=== PATIENT | female | born 1945 | race Hispanic/Latino ===

== ENCOUNTER → 2018-09-25 | Outpatient (CLI) | payer MEDICARE, BC ==
--- NOTE | 2018-09-25 15:53 | Diagnostic Imaging Report ---
Ultrasound-guided right thyroid nodule fine needle aspiration Pre-Procedure Diagnosis: Right lower pole thyroid nodule Post-procedure Diagnosis: Right lower pole thyroid nodule status post FNA [employer]: Kevon Jenkins MD Sedation: 1% lidocaine local anesthesia. Estimate blood loss: None. Complications: None Implants/Grafts: None Specimen: 25-gauge fine needle aspiration x 4 Procedure/Findings: Outside hospital thyroid ultrasound dated 06/30/2018 was reviewed. Informed consent was obtained and the patient positioned supine in the ultrasound suite. A timeout was performed, followed by preliminary ultrasound of the thyroid which demonstrated multiple bilateral thyroid nodules. The largest solid nodule was in the right lower pole thyroid and targeted for biopsy. The neck was prepped and draped in standard sterile fashion. Local anesthesia with 1% subcutaneous lidocaine was administered. Using real-time ultrasound guidance, a 25-gauge needle was advanced into the right lower pole thyroid nodule and a total of four fine needle aspirates were obtained. Pathology was present for the procedure and confirmed adequacy of the sample. Post procedural ultrasound demonstrated no immediate complication. A sterile dressing was applied. Impression: Ultrasound guided fine needle aspiration of right lower pole thyroid nodule as above. Signed by: Dr. Kevon Jenkins MD on 09/25/2018 3:50 PM
== END ==
LOC: US 12:38
PROVIDERS: ATTEND Otolaryngology
DX: E04.2 Nontoxic multinodular goiter (principal)
CPT/HCPCS: 10005; 88172; 88173

== ENCOUNTER 2019-03-11 13:43 | Outpatient (RCR) | payer MEDICARE, BC | END 2019-03-15 | LOC: PT 13:43 | PROVIDERS: ATTEND Internal Medicine | DX: M25.552 Pain in left hip (principal); M54.5 Low back pain; M62.81 Muscle weakness (generalized); R26.2 Difficulty in walking, not elsewhere classified ==

== ENCOUNTER 2019-03-25 16:00 | Outpatient (RCR) | payer MEDICARE, BC | END 2019-04-15 | LOC: PT 16:00 | PROVIDERS: ATTEND Internal Medicine | DX: M25.552 Pain in left hip (principal); M54.5 Low back pain; M62.81 Muscle weakness (generalized) | CPT/HCPCS: 97139 ==

== ENCOUNTER → 2019-06-07 | Outpatient (CLI) | payer MEDICARE, BC ==
--- NOTE | 2019-06-08 07:59 | Diagnostic Imaging Report ---
Examination: MRI SPINE LUMBAR WO CONTRAST History: Low back pain with radiation to the bilateral lower extremity. Bilateral lumbar radiculopathy. Comparison studies: None Technique: Sagittal, coronal and axial T2 , sagittal T1 and STIR; axial spin density oblique. Findings: Number of lumbar vertebral bodies: Five. Alignment: Normal lordosis. No scoliosis. Soft tissues: No T2 hyperintense inflammatory changes. Posterior paraspinal soft tissues and muscles: No abnormality. Lower thoracic cord: Normal in signal and morphology. The tip of the conus is at T12. Cauda equina: No masses. No arachnoiditis. Vertebrae: No acute fractures, infection or neoplasm. Chronic height loss of the L1 vertebral body (50%) without canal compromise. Degenerative changes: L1-L2: Mild diffuse bulge. No foraminal or canal stenosis. L2-L3: Diffuse disc bulge and mild bilateral facet arthropathy. No foraminal or canal stenosis. L3-L4: Diffuse disc bulge and bilateral facet arthropathy results in mild canal stenosis and mild bilateral neural foraminal narrowing. L4-L5: Grade 1 anterolisthesis without pars defect. Uncovering of a diffuse disc bulge and severe bilateral facet arthropathy result in mild bilateral neural foraminal narrowing and moderate canal stenosis. L5-S1: Mild diffuse disc bulge and moderate bilateral facet arthropathy. No canal or foraminal stenosis IMPRESSION: Degenerative changes from L1-L2 through L5-S1 with moderate canal stenosis at L4-L5 and mild canal stenosis at L3-L4. No significant (not moderate or severe) foraminal stenosis. Chronic L1 compression fracture. Signed by: Dr. Bisi Nobles M.D. on 06/08/2019 7:56 AM
== END ==
LOC: MRI 14:23
PROVIDERS: ATTEND Specialist
DX: M54.16 Radiculopathy, lumbar region (principal); M43.16 Spondylolisthesis, lumbar region
CPT/HCPCS: 72148

== ENCOUNTER → 2020-03-11 | Outpatient (CLI) | payer MEDICARE, BC ==
--- NOTE | 2020-03-11 13:23 | Diagnostic Imaging Report ---
EXAMINATION: CHEST 2 VIEWS INDICATION: Cough. COMPARISON: None FINDINGS: TUBES and LINES: None. LUNGS: Lungs are well inflated. Mild bronchial thickening. Mild patchy bibasilar opacities. No evidence of lobar pneumonia. PLEURA: No pleural effusion or pneumothorax. HEART AND MEDIASTINUM: The cardiomediastinal silhouette is unremarkable. BONES AND SOFT TISSUES: No acute osseous lesion. Soft tissues are unremarkable. UPPER ABDOMEN: No free air under the diaphragm. IMPRESSION: Mild patchy bibasilar opacities, likely atelectasis, although infection is possible in the appropriate clinical setting. No evidence of lobar pneumonia. Mild bronchial wall thickening, suggestive of bronchitis in the setting of cough. Signed by: Dr. Kevon Jenkins MD on 03/11/2020 1:20 PM
== END ==
LOC: RAD 12:03
PROVIDERS: ATTEND Internal Medicine
DX: R05 Cough (principal)
CPT/HCPCS: 71046

== ENCOUNTER 2020-07-06 15:13 | Emergency (ER) | payer MEDICARE, BC ==
[~2020-07-06] VITALS: Ht 167.6 cm; Wt 84.1 kg
[2020-07-06] MEDS ORDERED: AMLODIPINE BESY10 MG PO (15:47)
[2020-07-06] MEDS ORDERED: LOSARTAN POTAS100 MG PO (15:47)
[2020-07-06] MEDS ORDERED: CRESTOR10 MG PO (15:47)
[2020-07-06] MEDS ORDERED: VENLAFAXINE HCL75 MG PO (15:47)
[2020-07-06] MEDS ORDERED: METFORMIN HCL1000 MG (15:47)
[2020-07-06] MEDS ORDERED: PLAVIX75 MG PO (15:47)
[2020-07-06] MEDS ORDERED: MOTRIN200 MG PO (16:15)
[2020-07-06] MEDS ORDERED: KETOROLAC TROMETHAMINE 60 MG/2 ML VIAL IM ONE (16:15)
== END 2020-07-06 16:23 | disposition home or self-care (01) ==
LOC: FSED 15:35
DX: R07.89 Other chest pain (principal); M25.532 Pain in left wrist; M79.632 Pain in left forearm; W18.30XA Fall on same level, unspecified, initial encounter; Y93.01 Activity, walking, marching and hiking; I10 Essential (primary) hypertension; E11.9 Type 2 diabetes mellitus without complications; F32.9 Major depressive disorder, single episode, unspecified; E78.5 Hyperlipidemia, unspecified; Z95.5 Presence of coronary angioplasty implant and graft
CPT/HCPCS: 71046; 73090; 96372; 99283; J1885

== ENCOUNTER 2021-07-15 14:29 | Emergency (ER) | payer MEDICARE, BC ==
[~2021-07-15] VITALS: Ht 157.5 cm; Wt 81.6 kg
[~2021-07-15 14:29] MED LIST: AMLODIPINE BESY10 MG PO; CRESTOR10 MG PO; LOSARTAN POTAS100 MG PO; METFORMIN HCL1000 MG; MOTRIN200 MG PO; PLAVIX75 MG PO; VENLAFAXINE HCL75 MG PO
== END 2021-07-15 16:15 | disposition home or self-care (01) ==
LOC: FSED 14:50
DX: S93.402A Sprain of unspecified ligament of left ankle, initial encounter (principal); W06.XXXA Fall from bed, initial encounter; Y93.84 Activity, sleeping; Y92.003 Bedroom of unspecified non-institutional (private) residence as the place of occurrence of the external cause; I10 Essential (primary) hypertension; E11.9 Type 2 diabetes mellitus without complications; E78.5 Hyperlipidemia, unspecified; I25.10 Atherosclerotic heart disease of native coronary artery without angina pectoris; Z95.5 Presence of coronary angioplasty implant and graft; Z86.73 Personal history of transient ischemic attack (TIA), and cerebral infarction without residual deficits
CPT/HCPCS: 99283

== ENCOUNTER 2024-04-26 13:24 | Emergency (ER) | payer BC, MEDICARE ==
[~2024-04-26] VITALS: Ht 165.1 cm; Wt 72.8 kg
[2024-04-26] MEDS ORDERED: LIDOCAINE 1% W/EPINEPHRINE 20 ML VIAL INJ ONE (13:45)
[2024-04-26] MEDS: TETANUS/DIPHTHERIA TOX ADULT 0.5 ML SYR IM ONE (13:58)
[2024-04-26 14:07] VITALS: PULSE 61; RESP 16; TEMP 97.3; O2SAT 96
[2024-04-26] MEDS ORDERED: PRESERVISION A1 EAC4 (15:02)
[2024-04-26] MEDS ORDERED: CITALOPRAM HBR10 MG (15:02)
[2024-04-26] MEDS ORDERED: LEVOTHYROXINE75 MCG PO (15:02)
[2024-04-26] MEDS ORDERED: JARDIANCE25 MG (15:02)
[2024-04-26] MEDS ORDERED: ALENDRONATE SOD35 MG (15:02)
[2024-04-26] MEDS ORDERED: ASPIRIN EC81 MG PO (15:02)
[2024-04-26] MEDS ORDERED: MINOXIDIL2.5 MG PO (15:02)
[2024-04-26] MEDS ORDERED: METOPROLOL SUCC25 MG PO (15:02)
== END 2024-04-26 14:07 | disposition home or self-care (01) ==
LOC: FSED 13:32
DX: S61.212A Laceration without foreign body of right middle finger without damage to nail, initial encounter (principal); W45.8XXA Other foreign body or object entering through skin, initial encounter; Y92.89 Other specified places as the place of occurrence of the external cause; I10 Essential (primary) hypertension; E11.9 Type 2 diabetes mellitus without complications; E78.5 Hyperlipidemia, unspecified; I25.10 Atherosclerotic heart disease of native coronary artery without angina pectoris; Z95.5 Presence of coronary angioplasty implant and graft
CPT/HCPCS: 90471; 90714; 96372; 99283

== ENCOUNTER 2024-05-06 10:24 | Emergency (ER) | payer MEDICARE ==
[~2024-05-06] VITALS: Ht 162.6 cm; Wt 73.5 kg
[~2024-05-06 10:24] MED LIST changes: +ALENDRONATE SOD35 MG; +ASPIRIN EC81 MG PO; +CITALOPRAM HBR10 MG; +JARDIANCE25 MG; +LEVOTHYROXINE75 MCG PO; +METOPROLOL SUCC25 MG PO; +MINOXIDIL2.5 MG PO; +PRESERVISION A1 EAC4
[2024-05-06 10:49] VITALS: PULSE 68; RESP 14; TEMP 97.2; O2SAT 94
== END 2024-05-06 11:16 | disposition home or self-care (01) ==
LOC: FSED 10:48
DX: Z48.02 Encounter for removal of sutures (principal); E11.9 Type 2 diabetes mellitus without complications; I10 Essential (primary) hypertension; E78.5 Hyperlipidemia, unspecified; Z86.73 Personal history of transient ischemic attack (TIA), and cerebral infarction without residual deficits
CPT/HCPCS: 99282